=== PATIENT | male | born 1955 | race Caucasian/White ===

== ENCOUNTER 2016-08-08 09:37 | Emergency (ER) | payer BC ==
--- NOTE | 2016-08-08 10:25 | ED Physician Chart ---
Chief Complaint/HPI - Patient Information Date Seen:: 08/08/16 Time Seen:: 10:20 Chief Complaint:: mass on left thumb History of Present Illness:: This patient presents the emergency department today for complaint of a fungating mass on the right left thumb. This lesion has been here for 1 month. Patient states he thinks it began after he was doing some wrist exercises and had friction in that area. Says the swelling and pain are worse now. Patient saw his primary Care physician Dr. Cr 2 weeks ago. He did not bring the thumb up at that time as it was not bothering him as much. This patient has a complex medical history. He has a lifelong history of psoriasis and had been on Remicade for 12 years however is no longer on Remicade. 9 months ago he developed a left leg paralysis. 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 This lesion was treated with 5 months of steroids. There was no surgery no chemotherapy and no radiation. Patient then spent 6 months and a rehabilitation facility and conducted a month of physical therapy at [facility]. Patient is now living at home. He is usually alone there although has a who is currently spending much time and passive [employer]. She was recently treated for scabies. Patient denies any history of diabetes. He is currently on otezla for his psoriasis. He has flaking of all his toenails. Allergies:: Allergies Allergy/AdvReac Type Severity Reaction Status Date / Time No Known Allergies Allergy Verified 08/08/16 09:51 Vitals:: Vital Signs - 8 hr 08/08/16 09:52 Temp 96.6 F HR 67 RR 16 BP 145/61 O2 Sat % 99 Historian:: Patient Review of Systems - Review of Systems General/Constitutional: No fever, No chills, No weight loss, No weakness, No diaphoresis, No edema, No loss of appetite Skin: Skin lesions, No rash, No bruising Head: No headache, No light-headedness Eyes: No loss of vision, No pain, No diplopia ENT: No earache, No nasal drainage, No sore throat, No tinnitus Neck: No neck pain, No swelling, No thyromegaly, No stiffness, No mass noted Cardio Vascular: No chest pain, No palpitations, No PND, No orthopnea, No edema Pulmonary: No SOB, No cough, No sputum, No wheezing GI: No nausea, No vomiting, No diarrhea, No pain, No melena, No hematochezia, No constipation, No hematemesis G/U: No dysuria, No frequency, No hematuria Musculoskeletal: No bone or joint pain, No back pain, No muscle pain Endocrine: No polyuria, No polydipsia Psychiatric: No prior psych history, No depression, No anxiety, No suicidal ideation Hematopoietic: No bruising, No lymphadenopathy Allergic/Immuno: No urticaria, No angioedema Neurological: No syncope, No focal symptoms, Weakness (rt leg..improved w recent pt.), No weakness, No paresthesia, No headache, Seizure, No dizziness, No confusion, No vertigo Past Medical History - Past Medical History Past Medical History: HTN, Seizures, Arthritis, Other (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 Physical Exam - Physical Examination General/Constitutional: Awake, Well-developed, well-nourished, Alert, No distress, GCS 15, Non-toxic appearing, Ambulatory Head: Atraumatic Eyes: Lids, conjuctiva normal, PERRL, EOMI Skin: Nl inspection, No rash, No skin lesions, No ecchymosis, Well hydrated, No lymphadenopathy ENMT: External ears, nose nl, Nasal exam nl, Lips, teeth, gums nl Neck: Nontender, Full ROM w/o pain, No JVD, No nuchal rigidity, No bruit, No mass, No stridor Respiratory: Nl effort/Exclusion, Clear to Auscultation, No Wheeze/Rhonchi/Rales Cardio Vascular: RRR, No murmur, gallop, rubs, NL S1 S2 GI: No tenderness/rebounding/guarding, No organomegaly, No hernia, Normal BS's, Nondistended, No mass/bruits, No McBurney tenderness : No CVA tenderness Extremities: No tenderness or effusion, Full ROM, normal strength in all extremities, No edema, Normal digits & nails Other Extremities comments:: left thumb has flaking nail consistent w chronic fungal infection. there is a fungated fibrous plaque on volar thumb which takes up most of the thumb pad. it appears chronic. it is not fluctuant. there is no surrounding redness nor undue warmth. slt local edema. asked to see pts toes and they are all flaking nails cw chronic fungal onchomycosis. Neuro/Psych: Alert/oriented, DTR's symmetric, Normal sensory exam, Judgement/ insight normal, Mood normal, Normal gait, No focal deficits Other Neuro/Psych comments:: pt seems to have reasonably nrml gait. by hx rt leg weakness. Misc: normal gait, Normal back, No paraspinal tenderness Labs/Radiology/EKG Results - Lab Results Results: Laboratory Tests 08/08/16 08/08/16 10:35 10:35 WBC 7.0 RBC 4.49 Hgb 14.0 Hct 42.4 MCV 94.4 MCH 31.2 H MCHC Differential 33.0 RDW 19.8 Plt Count 302 MPV 7.2 Neutrophils % 48.6 Lymphocytes % 27.9 Monocytes % 11.5 H Eosinophils % 11.6 H Basophils % 0.4 Sodium 140 Potassium 3.8 Chloride 109 H Carbon Dioxide 29.2 Anion Gap 5.6 L BUN 9 Creatinine 0.6 L Est GFR ( Amer) > 60.0 Est GFR (Non-Af Amer) > 60.0 BUN/Creatinine Ratio 15.0 Glucose 85 Calcium 8.9 Total Bilirubin 0.3 AST 10 L ALT 7 Alkaline Phosphatase 82 Total Protein 5.7 L Albumin 3.2 L Globulin 2.5 Albumin/Globulin Ratio 1.3 - Radiology Results Results: xray lt thumb- no osteo, no fx. mod djd. ED Septic Shock - . Is Septic Shock (SBP<90, OR Lactate>4 mmol\L) present?: No - <6hrs of presentation: Vital Signs: Vital Signs - 8 hr 08/08/16 09:52 Temp 96.6 F HR 67 RR 16 BP 145/61 O2 Sat % 99 Reassessment (Disposition) - Reassessment Reassessment:: results reviewed w pt. His lesion on thumb looks like a dense fibrous plug 1.5cm x 2.5 cm ovoid shape. ...looks most similar to a chronic kerrion (though not on scalp)...it does not look like acute abscess or tenosynovitis or cellulitis or felon or paranychia. dw pt need for surgical revision and bx. I cant just do this elective sx here/ now because I would not be able to close the wound once plug removed. I have explained to pt I can start him on a short course of antifungal and abx ( to be cautious) but that I dont think this will make it all go away immediately...he will need longer tx and this required PMD input and monitoring....pt says understands. pt to return if finger looks worse. more red/hot. less flezability, fever, worse pain. pt admits at this point that he had asked PMD for a derm referrral but that it wasnt happening fast enough so....he does have a appt coming up. pt strongly advised to see derm or a hand surgeon as removal of this lesion would be difficult and require grafting to cover excision hole Reassessment Condition:: Improved - Diagnosis Diagnosis:: lesion on left thumb- presumptively believed to be fungal related - Aftercare/Follow up Instructions Aftercare/Follow-Up Instructions:: Counseled pt regarding lab results/diagnosis & need follow up Notes:: rx keflex and fluconazole 50/d x 1week. pt to see pmd in next few days for rechk. return if worse. may use antifungal cream on finger as well - Patient Disposition Discharge/Transfer:: Home Condition at Disposition:: Unchanged
--- NOTE | 2016-08-08 10:39 | Diagnostic Imaging Report ---
Left thumb 3 views Indication: Swelling, mass, volar aspect of the thumb Comparison: none Findings: There appears to be soft tissue injury and soft tissue defect seen along the volar aspect of the first interphalangeal joint. No gross radiopaque foreign body identified. Tiny ossicle is seen along the base of the first DIP joint volarly which may have been due to old trauma or represent an accessory ossicle. Moderate degenerative changes are seen. No definite acute fracture or evidence of dislocation. Impression: Soft tissue defect and likely soft tissue injury seen along the volar aspect of the first DIP joint region. Please correlate clinically. No evidence of an acute fracture Moderate Degenerative changes. Given patient's clinical history if indicated follow up exam such as MRI may also be obtained. In the setting of trauma, if clinical symptoms persist and there is continued concern for an occult fracture, follow up exams in 5-7 days is suggested.
[2016-08-08 10:47] LABS: MEAN CORPUSCULAR HEMOGLOBIN 31.2 pg (26.0-30.0)
[2016-08-08 10:51] LABS: % BASOPHILS 0.4 % (0.0-2.0); % EOSINOPHILS 11.6 % (0.0-5.0); % LYMPHOCYTES 27.9 % (20.0-50.0); % MONOCYTES 11.5 % (2.0-10.0); % NEUTROPHILS 48.6 % (40.0-80.0); HEMATOCRIT 42.4 % (39.0-49.0); MEAN CELL VOLUME 94.4 fl (80-99); MEAN PLATELET VOLUME 7.2 fl; NEUTROPHILE ABSOLUTE 3.4 Th/cmm (1.8-8.0); PLATELET COUNT 302 Th/cmm (150-400); RED BLOOD COUNT 4.49 Mil/cmm (4.30-5.70); RED CELL DISTRIBUTION WIDTH 19.8 % (11.5-20.0)
[2016-08-08 11:06] LABS: ALB/GLOB RATIO 1.3 (1.0-1.8); ALKALINE PHOSPHATASE 82 U/L (34-104); ANION GAP 5.6 (7.0-16.0); BILIRUBIN,TOTAL 0.3 mg/dL (0.3-1.0); BUN - UREA NITROGEN 9 mg/dL (7-25); CALCIUM SERUM 8.9 mg/dL (8.6-10.3); CARBON DIOXIDE 29.2 mEq/L (21.0-31.0); CHLORIDE 109 mEq/L (98-107); CREATININE - SERUM 0.6 mg/dL (0.7-1.3); GLUCOSE 85 mg/dL (70-105); POTASSIUM SERUM 3.8 mEq/L (3.5-5.1); SGOT 10 U/L (13-39); SGPT/ALT 7 U/L (7-52); SODIUM SERUM 140 mEq/L (136-145)
== END 2016-08-08 13:00 | disposition left against medical advice (07) ==
LOC: ER 09:37
DX: L98.8 Other specified disorders of the skin and subcutaneous tissue (principal); I10 Essential (primary) hypertension
CPT/HCPCS: 36415-UA; 73140-TC-FA; 80053-TC; 85025-TC; 87070-90